=== PATIENT | female | born 1955 | race Caucasian/White ===

== ENCOUNTER → 2019-11-10 10:10 | Outpatient (BNVA) | payer MEDICARE, OTHER, SELFPAY | PROVIDERS: Family Provider Internal Medicine; PCP Internal Medicine; Referring Provider Internal Medicine; Visit Provider Podiatrist Foot & Ankle Surgery | DX: M20.41 Other hammer toe(s) (acquired), right foot (principal); M20.42 Other hammer toe(s) (acquired), left foot | CPT/HCPCS: 73630; 77077 ==

== ENCOUNTER 2019-12-02 08:20 | Outpatient (CLI) | payer MEDICARE, OTHER, SELFPAY ==
--- NOTE | 2019-12-02 08:24 | MM_ITS ---
WS: [id number] BILATERAL SCREENING DIGITAL MAMMOGRAM WITH CAD HISTORY: SCREENING COMPARISON: 12/01/2018, 11/27/2017 and 11/25/2016 Bilateral CC and MLO views submitted. Computer aided detection analyzed. Breast composition: The breasts are heterogeneously dense, which may obscure small masses. No suspici ous masses, microcalcifications or architectural distortion. Benign calcifications in each breast. Ov erall fibroglandular pattern is stable. MM/[place] [id number] IMPRESSION: BI-RADS: 2-Benign FOLLOW UP: 1 Year Follow-up
== END 2019-12-02 08:21 | disposition home or self-care (01) ==
LOC: RADSHAW 08:20
PROVIDERS: Family Provider Internal Medicine; PCP Internal Medicine; Visit Provider Internal Medicine
DX: Z12.31 Encounter for screening mammogram for malignant neoplasm of breast (principal)
CPT/HCPCS: 77067

== ENCOUNTER 2020-08-01 08:20 | Outpatient (CLI) | payer MEDICARE, OTHER, SELFPAY ==
--- NOTE | 2020-08-01 | MR_ITS ---
WS: [id number] MRI CERVICAL SPINE NONCONTRAST AND CONTRAST TECHNIQUE: Sagittal T1, T2 and STIR imaging. Axial T2, gradient, and fiesta imaging. Post gadolinium imaging was obtained CLINICAL INFORMATION: SYRINX OF SPINAL CORD COMPARISON: July 26 2019 FINDINGS: Normal cervical alignment. Stable short segment syrinx in the central cord at C5-6. This measures 2.5 mm in maximum AP dimension and 6 mm in craniocaudal length unchanged. No abnormal gadolinium enhance ment. C2-C3: Osteophytic ridging with mild facet arthropathy. Mild left foraminal narrowing. Spinal canal a nd right foramen are patent. C3-C4: Slight retrolisthesis C3 on C4 with disc osteophyte complex. Moderate left and no significant right foraminal narrowing. Spinal canal is patent. C4-C5: Slight retrolisthesis C4 on C5. Disc osteophyte complex with endplate ridging. Mild central ca nal stenosis. Moderate left and mild to moderate right bony foraminal narrowing. Mild facet arthropat hy. C5-C6: Disc osteophyte complex with endplate ridging. Moderate to severe bilateral bony foraminal renetta rowing. Mild central canal stenosis. Moderate facet arthropathy. C6-C7: Disc osteophyte complex eccentric to the left. Severe left and moderate right bony foraminal n arrowing. Spinal canal is patent. Mild facet arthropathy. C7-T1: Normal. Visualized brain stem structures: Normal. Prevertebral soft tissues: Normal. MR/MR cervical spine wo/w [id number] IMPRESSION: 1. Stable syrinx within the cervical cord measuring 2.5 mm in AP dimension and 6 mm in craniocaudal length C5-6. No enhancement. Cord signal is otherwise nor mal. No evidence of syrinx progression. 2. Mild central canal stenosis C4-C5 and C5-C6 due to disc osteophytic ridging . 3. Moderate to severe multilevel bony foraminal narrowing worse at left C4-C5, bilateral C5-C6, and left C6-C7 unchanged.
== END 2020-08-01 08:21 | disposition home or self-care (01) ==
LOC: RADSHAW 08:23
PROVIDERS: PCP Internal Medicine; Visit Provider Specialist
DX: G95.0 Syringomyelia and syringobulbia (principal)
CPT/HCPCS: 72156; 99214; A9579

== ENCOUNTER → 2020-08-10 11:42 | Outpatient (BNVA) | payer MEDICARE, OTHER, SELFPAY | PROVIDERS: Family Provider Internal Medicine; PCP Internal Medicine; Visit Provider Internal Medicine Cardiovascular Disease | DX: E78.5 Hyperlipidemia, unspecified (principal) | CPT/HCPCS: 80061 ==

== ENCOUNTER 2020-12-05 08:12 | Outpatient (CLI) | payer MEDICARE, OTHER, SELFPAY ==
--- NOTE | 2020-12-05 08:47 | MM_ITS ---
WS: [id number] BILATERAL SCREENING DIGITAL MAMMOGRAM WITH CAD HISTORY: SCREENING COMPARISON: 12/02/2019 and 12/01/2018 Bilateral CC and MLO views submitted. Computer aided detection analyzed. Breast composition: The breasts are heterogeneously dense, which may obscure small masses. No suspici ous masses, microcalcifications or architectural distortion. Stable appearance of the breasts with be nign calcifications. MM/[place] [id number] IMPRESSION: BI-RADS: 2-Benign FOLLOW UP: 1 Year Follow-up
== END 2020-12-05 08:13 | disposition home or self-care (01) ==
PROVIDERS: Family Provider Internal Medicine; PCP Internal Medicine; Visit Provider Internal Medicine
DX: Z12.31 Encounter for screening mammogram for malignant neoplasm of breast (principal)
CPT/HCPCS: 77067

== ENCOUNTER 2021-08-09 10:48 | Outpatient (CLI) | payer MEDICARE, OTHER, SELFPAY ==
--- NOTE | 2021-08-09 11:00 | MR_ITS ---
WS: [id number] MRI CERVICAL SPINE with and without contrast. HISTORY: Follow-up syrinx. COMPARISON: 08/01/2020 Technique: Multiplanar, multisequence noncontrast imaging of the cervical spine. Postcontrast study a lso performed. Mild increase in the cervical lordosis. Less than 2 mm retrolisthesis of C3 and C4. Moderate degenera tive disc disease and osteophytosis throughout the cervical spine. Very similar to the prior study. Stable short segment syrinx in the central cervical cord at the C5-6 level. Extends over a length of 6 mm and anterior posterior by 2.5 mm. No additional syrinx or progression and no enhancement. Craniocervical junction, C1 and C2 relationship, odontoid process and soft tissues are normal. C2-C3: Osteophytic ridging slightly asymmetric to the LEFT with mild LEFT foraminal narrowing. C3-C4: Central disc osteophyte complex extends slightly greater to the LEFT. Mild central and LEFT fo raminal narrowing. C4-C5: Osteophytic ridging and disc bulging with contact on the ventral thecal sac and slightly great er contact on the LEFT. Mild central and RIGHT foraminal stenosis with moderate LEFT foraminal stenos is. C5-C6: Diffuse osteophytic ridging and annular disc bulging. Mild central and moderate foraminal sten osis. C6-C7: Diffuse osteophytic ridging and central disc protrusion. Severe LEFT and moderate RIGHT forami nal stenosis due to disc and osteophyte disease. Mild central stenosis. Facet cyst or small nerve sonam t sleeve diverticulum on the LEFT. C7-T1: Normal. Paraspinal soft tissue are normal. MR/MR cervical spine wo/w [id number] IMPRESSION: 1. Stable syrinx in the central cervical cord at C5-6 extends over length of 6 mm and enter posterior by 2.5 mm. No enhancement or progression of syrinx. 2. Multilevel areas of stenosis predominantly due to osteophytes and facet art hritis. Not significantly progressed since the prior study. 3. Moderate LEFT foraminal stenosis at C4-5 with mild central and RIGHT forami nal stenosis. 4. Mild central and moderate foraminal stenosis at C5-6. 5. Severe LEFT and moderate RIGHT foraminal stenosis at C6-7.
[2021-08-09] MEDS: gadobenate dimeglumine 20 mL vial IV (12:35)
== END 2021-08-09 10:49 | disposition home or self-care (01) ==
LOC: RADSHAW 10:52
PROVIDERS: PCP Internal Medicine; Visit Provider Licensed Practical Nurse
DX: G95.0 Syringomyelia and syringobulbia (principal); M48.02 Spinal stenosis, cervical region
CPT/HCPCS: 72156; A9577

== ENCOUNTER → 2021-09-12 09:20 | Outpatient (BNVA) | payer MEDICARE, OTHER, SELFPAY | PROVIDERS: PCP Internal Medicine; Visit Provider Internal Medicine | DX: R30.9 Painful micturition, unspecified (principal); A60.09 Herpesviral infection of other urogenital tract; E78.5 Hyperlipidemia, unspecified; E78.2 Mixed hyperlipidemia; Z23 Encounter for immunization | CPT/HCPCS: 81000 ==

== ENCOUNTER 2022-01-24 11:15 | Outpatient (CLI) | payer MEDICARE, OTHER, SELFPAY ==
--- NOTE | 2022-01-24 11:21 | MM_ITS ---
WS: [id number] Exam: [place] [id number] Date/Time of Exam: 01/24/2022 11:21 AM Reason For Exam: SCREENING VIEWS: MLO and CC views both breasts. 3D digital tomosynthesis is also included in this exam. Comparison made with prior exam of 12/05/2020. Findings: There was no sign of mass, architectural distortion or suspicious calcification in either breast. He terogeneously dense MM/[place] [id number] Impression: BI-RADS: 2-Benign FOLLOW-UP: 1 Year Follow-up This mammogram was also analyzed by the Computer Aided Detection System R2 Imag e Rad Tech.
== END 2022-01-24 11:16 | disposition home or self-care (01) ==
LOC: RADSHAW 11:18
PROVIDERS: PCP Internal Medicine; Visit Provider Internal Medicine
DX: Z12.31 Encounter for screening mammogram for malignant neoplasm of breast (principal)
CPT/HCPCS: 77063; 77067

== ENCOUNTER 2022-06-26 10:57 | Outpatient (CLI) | payer MEDICARE, OTHER, SELFPAY ==
--- NOTE | 2022-06-26 11:00 | FL_ITS ---
WS: [id number] Exam: FL barium swallow modifd [id number] Date/Time of Exam: 06/26/2022 10:58 AM Reason For Exam: Fluoroscopy time: 2.8 minutes # of spot films: 1 Modified barium swallow was performed in conjunction with the speech therapy department. The patient experienced one episode of mild penetration into the laryngeal inlet when ingesting thin liquid barium solution. The patient tolerated nectar consistency, pudding consistency and solid bariu m mixture foodstuffs without aspiration or penetration. The patient ingested a barium pill without di fficulty or complication. FL/FL barium swallow modifd [id number] IMPRESSION: 1. The patient experienced one episode of mild penetration into the laryngeal i nlet when ingesting thin liquids. No other sign of penetration. No aspiration w as noted. A separate report of recommendations and findings will follow from the speech t herapy service.
== END 2022-06-26 10:58 | disposition home or self-care (01) ==
LOC: RAD 10:57
PROVIDERS: PCP Internal Medicine; Visit Provider Internal Medicine
DX: T17.308A Unspecified foreign body in larynx causing other injury, initial encounter (principal); X58.XXXA Exposure to other specified factors, initial encounter
CPT/HCPCS: 74230; 92611

== ENCOUNTER 2023-01-28 08:04 | Outpatient (CLI) | payer MEDICARE, OTHER, SELFPAY ==
--- NOTE | 2023-01-28 08:13 | MM_ITS ---
WS: [id number] BILATERAL SCREENING DIGITAL TOMOSYNTHESIS MAMMOGRAM WITH CAD HISTORY: SCREENING COMPARISON: 01/24/2022, 12/05/2020 Bilateral CC and MLO views with tomosynthesis and synthetic mammography submitted. Computer aided det ection analyzed. Breast composition: The breasts are heterogeneously dense, which may obscure small masses. No suspici ous masses, microcalcifications or architectural distortion. Benign bilateral calcifications. MM/[place] [id number] IMPRESSION: BI-RADS: 2-Benign FOLLOW UP: 1 Year Follow-up
== END 2023-01-28 08:05 | disposition home or self-care (01) ==
LOC: RAD 08:08
PROVIDERS: PCP Internal Medicine; Visit Provider Internal Medicine
DX: Z12.31 Encounter for screening mammogram for malignant neoplasm of breast (principal)
CPT/HCPCS: 77063; 77067

== ENCOUNTER 2023-10-14 10:47 | Outpatient (CLI) | payer MEDICARE, OTHER, SELFPAY ==
--- NOTE | 2023-10-14 10:55 | MR_ITS ---
WS: [id number] MRI LUMBAR SPINE NONCONTRAST HISTORY: LUMBAR BACK PAIN W/RADICULOPATHY AFFECTING LOWER EXTREMITY COMPARISON: 08/03/2007 TECHNIQUE: Sagittal and axial multisequence imaging is submitted. Reidentified is the focal syrinx in the cervical cord at C5 extending over a length of 6 mm. No ambrose e since 08/09/2021. Degenerative spondylitic changes in the cervical and thoracic spines. No high-gra de cord compression. There is significant artifact with deformity of the lumbar spine due to the extensive hardware. Poste rior fusion hardware extends from L4-S1. Disc spaces are narrowed. Disc bases at L3-4, L4-5 and L5-S1 are distorted by the metallic artifact. Conus terminates normally at L1. L1-L2: Shallow bilateral paracentral disc protrusions. No significant stenosis. L2-L3: Mild facet arthritis and ligamentum flavum hypertrophy. No high-grade stenosis. L3-L4: Significant distortion by hardware. L4-L5: Incompletely evaluated and poorly visualized. L5-S1: Not well visualized. IMPRESSION: 1. Study is significantly compromised by the artifact secondary to the posterior fusion hardware from L4-S1. 2. There is no significant stenosis at L1-2 or L2-3. The remaining disc levels cannot be adequately e valuated.
== END 2023-10-14 10:48 | disposition home or self-care (01) ==
LOC: RAD 10:48
PROVIDERS: PCP Internal Medicine; Visit Provider Internal Medicine
DX: M54.16 Radiculopathy, lumbar region (principal); M48.061 Spinal stenosis, lumbar region without neurogenic claudication
CPT/HCPCS: 72148

== ENCOUNTER 2024-02-03 08:57 | Outpatient (CLI) | payer MEDICARE, OTHER, SELFPAY ==
--- NOTE | 2024-02-03 09:00 | MM_ITS ---
WS: [id number] BILATERAL 3D TOMOSYNTHESIS DIGITAL SCREENING MAMMOGRAPHY WITH CAD CLINICAL INFORMATION: SCREENING HISTORY: Screening mammogram. No current complaints. COMPARISON: 2022 TECHNIQUE: Bilateral CC and MLO views. FINDINGS: The breasts are composed of heterogeneous fibroglandular density tissue, which can limit the detectio n of small underlying mass lesions. No suspicious mass, asymmetry, calcifications, or architectural d istortion. No evidence of malignancy. A few incidental calcifications. Vascular calcifications. IMPRESSION: MM/[place] [id number] BI-RADS: 2-Benign FOLLOW UP: 1 Year Follow-up Recommend return to annual screening mammography.
== END 2024-02-03 08:58 | disposition home or self-care (01) ==
LOC: RAD 08:59
PROVIDERS: PCP Internal Medicine; Visit Provider Internal Medicine
DX: Z12.31 Encounter for screening mammogram for malignant neoplasm of breast (principal)
CPT/HCPCS: 77063; 77067

== ENCOUNTER → 2024-12-13 09:36 | Outpatient (BNVA) | payer MEDICARE, OTHER, SELFPAY | PROVIDERS: PCP Internal Medicine | DX: R05.9 Cough, unspecified (principal) | CPT/HCPCS: 87400 ==

== ENCOUNTER 2025-02-08 08:53 | Outpatient (CLI) | payer MEDICARE, OTHER, SELFPAY ==
--- NOTE | 2025-02-08 08:59 | MM_ITS ---
WS: [id number] BILATERAL SCREENING DIGITAL TOMOSYNTHESIS MAMMOGRAM WITH CAD HISTORY: SCREENING COMPARISON: 02/03/2024, 01/28/2023, 01/24/2022 Bilateral CC and MLO views with tomosynthesis and synthetic mammography submitted. Computer aided detection analyzed. Breast composition: The breasts are heterogeneously dense, which may obscure small masses. No suspicious masses, microcalcifications or architectural distortion. Benign calcifications in each breast. MM/MM scr tomosynthesis [id number] IMPRESSION: BI-RADS: 2 - Benign FOLLOW UP: 1 Year Follow-up
== END 2025-02-08 08:54 | disposition home or self-care (01) ==
PROVIDERS: PCP Internal Medicine; Visit Provider Internal Medicine
DX: Z12.31 Encounter for screening mammogram for malignant neoplasm of breast (principal); R92.333 Mammographic heterogeneous density, bilateral breasts; R92.1 Mammographic calcification found on diagnostic imaging of breast
CPT/HCPCS: 77063; 77067

== ENCOUNTER 2025-05-11 14:34 | Emergency (ER) | payer OTHER, MEDICARE, SELFPAY ==
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
--- OUTSIDE RECORDS SUMMARY | 2025-05-11 14:42 | XMS_ITS | Encounter Summary ---
Author Organization [facility] Address [address] [place] [address] Care Team Providers Care Biofuels Production Manager Name Role Phone Arturo Magallon MD Primary Care Provider Encounter Details Date Type Department Care Team (Latest Contact Info) Description 11/25/2001 Outpatient Historical [facility] [place] [address] [facility] [address] [place] [address] [address] MD ABDOMINAL PAIN UNSPEC SITE (Primary Dx) Social History Tobacco Use Types Packs/Day Years Used Date Smoking Tobacco: Never Assessed Comments Unknown Sex and Gender Information Value Date Recorded Sex Assigned at Not on file 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
--- OUTSIDE RECORDS SUMMARY | 2025-05-11 14:42 | XMS_ITS | Encounter Summary ---
Author Organization [facility] Address [address] [place] [address] Care Team Providers Care Hematologist Oncologist Name Role Phone Arturo Magallon MD Primary Care Provider Encounter Details Date Type Department Care Team (Latest Contact Info) Description 07/15/2000 Outpatient Historical [facility] Sean Anderson MD [address] [place] [id number] Acute upper respiratory infections of unspecified site (Primary Dx); Infective otitis externa, unspecified Social History Tobacco Use Types Packs/Day Years Used Date Smoking Tobacco: Never Assessed Comments Unknown Sex and Gender Information Value Date Recorded Sex Assigned at Not on file 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
--- OUTSIDE RECORDS SUMMARY | 2025-05-11 14:42 | XMS_ITS | Encounter Summary ---
Author Organization [facility] Address [address] [place] [address] Care Team Providers Care Mail Carrier And Clerk Name Role Phone Arturo Magallon MD Primary Care Provider Encounter Details Date Type Department Care Team (Latest Contact Info) Description 04/28/2001 Outpatient Historical [facility] Sean Anderson MD [address] [place] [id number] Pain in joint, shoulder region (Primary Dx); Carpal tunnel syndrome Social History Tobacco Use Types Packs/Day Years Used Date Smoking Tobacco: Never Assessed Comments Unknown Sex and Gender Information Value Date Recorded Sex Assigned at Not on file 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
--- OUTSIDE RECORDS SUMMARY | 2025-05-11 14:42 | XMS_ITS | Clinical Summary ---
Author Organization [facility] Address [address] 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 Gender Identity Not on file Sexual Orientation Not on file Plan of Treatment Health Maintenance Due Date Last Done Comments BREAST CANCER SCREENING 1997 DTAP/TDAP/TD VACCINES (1 - Tdap) 12/29/2001 12/29/19 02 COLORECTAL SCREENING 2002 Colorectal Cancer Screening 2002 FIT-DNA Q 3 years 2002 FIT/FOBT Q 1 year 2002 Flex Sig/CT Colonography Q 5 years 2002 PNEUMOCOCCAL VACCINE 50+ YEARS (1 of 1 - PCV) 10/29/19 08 ZOSTER VACCINE (1 of 2) 2007 OSTEOPOROSIS SCREENING 2022 INFLUENZA VACCINE (#1) 2025 08/18/2001 RSV VACCINE (60+ or ) (1 - 1-dose 75+ series) 2032 Care Teams Clinical Nursing Professor Relationship Specialty Start Date End Date Arturo Magallon MD [address] [place] [address] [facility] - General 06/19/06
--- OUTSIDE RECORDS SUMMARY | 2025-05-11 14:42 | XMS_ITS | Encounter Summary ---
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
--- OUTSIDE RECORDS SUMMARY | 2025-05-11 14:42 | XMS_ITS | Continuity of Care Document ---
Author Name [facility] Organization [facility] Care Team Providers Care Statistician Mathematical Name Role Phone [facility] Unavailable Unavailable Medications Combined list of outpatient medications from Department of Defense and Veterans Affairs facilities.Medications provided include 1) outpatient medications from the last 15 months, and 2) patient-reported medications. Medication Details Route Status Patient Instructions Prescription Expires Prescription Number Last Dispense Date Ordering Provider Order Date Order Qty Source IBANDRONATE SODIUM (ibandronat e sodium), 150 MG, TABLET, ORAL, Warp 9., 3 ea. BLIST PACK Active [id number] 2023 3 Pharmac y Data Transac tion Service Facilit y Immunizations Combined list of available immunizations from the Department of Defense and Veterans Affairs facilities. Immunization Series Date Given Administered By Site Reaction Lot Number CVX Code Drug Director Account Management Status Comments Source zoster recombinant 2020 CHAR, () Not Given zoster recombina nt DoD Social History Combined list of available smoking, tobacco, and other social history from Department of Defense and Veterans Affairs facilities. Social History Type Response Date Comment Sour e This section is an empty social history section. [facility]
--- OUTSIDE RECORDS SUMMARY | 2025-05-11 14:42 | XMS_ITS | Encounter Summary ---
Author Organization [facility] Address [address] [place] [address] Care Team Providers Care Electrical Equipment Technician Name Role Phone Arturo Magallon MD Primary Care Provider Encounter Details Date Type Department Care Team (Latest Contact Info) Description 08/18/2001 Outpatient Historical [facility] Sean Anderson MD [address] [place] [address] Need vaccination-viral disease (Primary Dx) Social History Tobacco Use Types Packs/Day Years Used Date Smoking Tobacco: Never Assessed Comments Unknown Sex and Gender Information Value Date Recorded Sex Assigned at Not on file 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
--- OUTSIDE RECORDS SUMMARY | 2025-05-11 14:42 | XMS_ITS | Encounter Summary ---
Author Organization [facility] Address [address] [place] [address] Care Team Providers Care Time Study Analyst Name Role Phone Arturo Magallon MD Primary Care Provider Encounter Details Date Type Department Care Team (Latest Contact Info) Description 09/08/[address] [facility] 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
--- OUTSIDE RECORDS SUMMARY | 2025-05-11 14:42 | XMS_ITS | Encounter Summary ---
Author Organization [facility] Address [address] [facility] [address] Attn: [place] [address] Care Team Providers Care Inhalation Therapist Name Role Phone Arturo Magallon MD Primary Care Provider Encounter Details Date Type Department Care Team (Late st Contact Info) Description 03/20/2000 Outpatient Historical Joss Rosario MD NO ADDRESS ON FILE Social History Tobacco Use Types Packs/Day Years Used Date Smoking Tobacco: Never Assessed Comments Unknown Sex and Gender Information Value Date Recorded Sex Assigned at Not on file 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
--- OUTSIDE RECORDS SUMMARY | 2025-05-11 14:42 | XMS_ITS | Encounter Summary ---
Author Organization [facility] Address [address] [place] [address] Care Team Providers Care Yarn Sorter Name Role Phone Arturo Magallon MD Primary Care Provider Encounter Details Date Type Department Care Team (Late st Contact Info) Description 08/20/2006 Outpatient Historical [facility] [address] [place] [phone] Arturo Magallon MD [address] [place] [address] Social History Tobacco Use Types Packs/Day Years Used Date Smoking Tobacco: Never Assessed Comments Unknown Sex and Gender Information Value Date Recorded Sex Assigned at Not on file 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
--- OUTSIDE RECORDS SUMMARY | 2025-05-11 14:42 | XMS_ITS | Encounter Summary ---
Author Organization [facility] Address [address] [place] [address] Care Team Providers Care Hospital Mortician Name Role Phone Arturo Magallon MD Primary Care Provider Encounter Details Date Type Department Care Team (Latest Contact Info) Description 10/16/2001 Outpatient Historical HIS [facility] Sean Anderson MD [address] [place] [phone] LUMBOSACRAL NEURITIS NOS (Primary Dx); LUMBAGO; HYPERLIPIDEMIA NEC/NOS Social History Tobacco Use Types Packs/Day Years Used Date Smoking Tobacco: Never Assessed Comments Unknown Sex and Gender Information Value Date Recorded Sex Assigned at Not on file Legal Sex Female 5:22 AM MATERIAL CONTROL SUPERVISOR Gender Identity Not on file Sexual Orientation Not on file documented as of this encounter Plan of Treatment Not on file documented as of this encounter Visit Diagnoses Diagnosis Thoracic or lumbosacral neuritis or radiculitis, unspecified- Primary Lumbago Other and unspecified hyperlipidemia documented in this encounter Care Teams Hospital Mortician Relationship Specialty Start Date End Date Arturo Magallon MD [address] [place] [address] PCP - General 06/19/06 documented as of this encounter
--- OUTSIDE RECORDS SUMMARY | 2025-05-11 14:42 | XMS_ITS | Encounter Summary ---
Author Organization [facility] Address [address] [place] [address] Care Team Providers Care Rolled Materials Worker Name Role Phone Arturo Magallon MD Primary Care Provider Encounter Details Date Type Department Care Team (Latest Contact Info) Description 06/25/2001 Outpatient Historical [facility] Joss Rosario MD NO ADDRESS ON FILE Backache, unspecified (Primary Dx); Mechanical complication of internal orthopedic device, implant, and graft Social History Tobacco Use Types Packs/Day Years Used Date Smoking Tobacco: Never Assessed Comments Unknown Sex and Gender Information Value Date Recorded Sex Assigned at Not on file Legal Sex Female 5:22 AM MANAGER IN TRAINING Gender Identity Not on file Sexual Orientation Not on file documented as of this encounter Plan of Treatment Not on file documented as of this encounter Visit Diagnoses Diagnosis Backache, unspecified- Primary Mechanical complication of internal orthopedic device, implant, and graft documented in this encounter Care Teams Rolled Materials Worker Relationship Specialty Start Date End Date Arturo Magallon MD [address] [place] [address] PCP - General 06/19/06 documented as of this encounter
--- OUTSIDE RECORDS SUMMARY | 2025-05-11 14:42 | XMS_ITS | Encounter Summary ---
Author Organization [facility] Address [address] [place] [address] Care Team Providers Care Roundsman Name Role Phone Arturo Magallon MD Primary Care Provider Encounter Details Date Type Department Care Team (Latest Contact Info) Description 11/20/2001 Outpatient Historical HIS [facility] Sean Anderson MD [address] [place] [phone] DISC DISPLACEMENT NOS (Primary Dx); General symptoms NEC; ARTHROPATHY NOS-MULT Social History Tobacco Use Types Packs/Day Years Used Date Smoking Tobacco: Never Assessed Comments Unknown Sex and Gender Information Value Date Recorded Sex Assigned at Not on file Legal Sex Female 5:22 AM ADVERTISING WRITER Gender Identity Not on file Sexual Orientation Not on file documented as of this encounter Plan of Treatment Not on file documented as of this encounter Visit Diagnoses Diagnosis Displacement of intervertebral disc, site unspecified, without myelopathy- Primary General symptoms NEC Other general symptoms Unspecified arthropathy, multiple sites documented in this encounter Care Teams Roundsman Relationship Specialty Start Date End Date Arturo Magallon MD [address] [place] [address] PCP - General 06/19/06 documented as of this encounter
--- OUTSIDE RECORDS SUMMARY | 2025-05-11 14:42 | XMS_ITS | Encounter Summary ---
Author Organization [facility] Address [address] [place] [address] Care Team Providers Care Drying Machine Back Tender Name Role Phone Arturo Magallon MD Primary Care Provider Encounter Details Date Type Department Care Team (Latest Contact Info) Description 02/19/2001 Outpatient Historical HIS [facility] Sean Anderson MD [address] [place] [phone] Lumbago (Primary Dx); Nonallopathic lesion of abdomen and other sites, not elsewhere classified Social History Tobacco Use Types Packs/Day Years Used Date Smoking Tobacco: Never Assessed Comments Unknown Sex and Gender Information Value Date Recorded Sex Assigned at Not on file Legal Sex Female 5:22 AM CUSTOMER CARE SPECIALIST Gender Identity Not on file Sexual Orientation Not on file documented as of this encounter Plan of Treatment Not on file documented as of this encounter Visit Diagnoses Diagnosis Lumbago- Primary Nonallopathic lesion of abdomen and other sites, not elsewhere classified documented in this encounter Care Teams Drying Machine Back Tender Relationship Specialty Start Date End Date Arturo Magallon MD [address] [place] [address] PCP - General 06/19/06 documented as of this encounter
--- OUTSIDE RECORDS SUMMARY | 2025-05-11 14:42 | XMS_ITS | Encounter Summary ---
Author Organization [facility] Address [address] [place] [address] Care Team Providers Care Patient Transport Officer Name Role Phone Arturo Magallon MD Primary Care Provider Encounter Details Date Type Department Care Team (Late st Contact Info) Description 07/20/2006 Outpatient Historical [facility] Therapy [address] [place] [address] Arturo Magallon MD [address] [place] [address] Social History Tobacco Use Types Packs/Day Years Used Date Smoking Tobacco: Never Assessed Comments Unknown Sex and Gender Information Value Date Recorded Sex Assigned at Not on file Legal Sex Female 5:22 AM RUG SAMPLE BEVELER Gender Identity Not on file Sexual Orientation Not on file documented as of this encounter Plan of Treatment Not on file documented as of this encounter Visit Diagnoses Not on filedocumented in this encounter Care Teams Patient Transport Officer Relationship Specialty Start Date End Date Arturo Magallon MD [address] [place] [address] PCP - General 06/19/06 documented as of this encounter
--- OUTSIDE RECORDS SUMMARY | 2025-05-11 14:42 | XMS_ITS | Patient Health Record ---
Author Organization [facility] Address [address] [place] [address] Care Team Providers Care Healthcare Liaison Name Role Phone Maynor Rossi Primary Care Provider Allergies Allergen (clinical drug ingredient) Drug/Non Drug Allergy documented on EMR Reaction Allergy Type Onset Date Status propoxyphene Propoxyphene vomiting Drug Allergy A ctive Reason For Referral No Information Medications Medication SIG (Take, Route, Frequency, Duration) Notes Start Date End Date Status Aspirin 81 MG Tablet Delayed Release 1 tablet Orally Once a day Active Ibandronate Sodium 150 mg Tablet TAKE 1 TABLET 60 MINUTES BEFORE FIRST FOOD, BEVERAGE OR MEDICINE OF THE DAY WITH PLAIN WATER ONCE A MONTH Active Topiramate 50 MG Tablet 1 tablet Orally Twice a day; Duration: 90 days Active Diclofenac Sodium 1 % Gel 4 grams Lens Molder ally Four times a day Not-Taking Diclofenac Sodium 3 % Gel 1 application Externally Twice a day; Duration: 90 days Active Celecoxib 400 mg Capsule TAKE 1 CAPSULE DAILY WITH FOOD Active oxyCODONE HCl 5 MG Tablet 1 tablet as ne eded Orally every 6 hrs; Duration: 30 days 11/06/2023 Active valACYclovir HCl 1 GM Tablet TAKE 1 TABLET DAILY Active Simvastatin 40 mg Tablet TAKE 1 TABLET D AILY IN THE EVENING Active Pantoprazole Sodium 40 MG Tablet Delayed Release 1 tablet Orally twice a day; Duration: 90 days Active Social History Tobacco Use: Social History Observation Description Date Details (start date - stop date) Former Smoker NA - NA Social History Drugs/Alcohol: Social Info Question Answer Notes Alcohol Screen (Audit-C) Did you have a drink containing alcohol in the past year? No Points 0 Interpretation Negative Drugs Have you used drugs other than those for medical reasons in the past 12 months? No Tobacco Use: Social Info Question Answer Notes xTobacco Use/Smoking Are you a former smoker How long has it been since you last smoked? > 10 years Problems Problem Type SNOMED Code ICD Code Onset Dates Problem Status W/U Status Risk Notes Problem Lumbar radiculopathy (328594228) Lumbar back pain with radiculopathy affecting lower extremity (M54.16) Active confirmed Plan Of Treatment No Information Insurance Providers Payer Name Payer Address Payer Phone Subscriber Number Group Number Insured Name Patient Relationship to Insured Coverage Start Date Coverage End Date [place] [address] [place] [phone] [id number] Vi Hook Self - patient is the insured for Life Secondary to Medicare [address] [place] [address] [phone] [id number] Vi Hook Self - patient is the insured Medical (General) History Medical History History ICD Code back pain hypertension arthritis Surgical History Surgery Date(Month/Year) hysterectomy lumbarectomy back fusion right hand surgery
--- OUTSIDE RECORDS SUMMARY | 2025-05-11 14:42 | XMS_ITS | Encounter Summary ---
Author Organization [employer] [facility] Address [address] [place] [address] Care Team Providers Care Medical Accountant Name Role Phone Arturo Magallon MD Primary Care Provider Encounter Details Date Type Department Care Team (Latest Contact Info) Description 02/05/2001 Outpatient Historical [facility] Sean Anderson MD [address] [facility] [place] [phone] Other specified disease of white blood cells (Primary Dx); Migraine, unspecified, without mention of intractable migraine without mention of status migrainosus; Polycythemia vera(238.4) (CMS/HCC) Social History Tobacco Use Types Packs/Day Years Used Date Smoking Tobacco: Never Assessed Comments Unknown Sex and Gender Information Value Date Recorded Sex Assigned at Not on file Legal Sex Female 5:22 AM BAND DIRECTOR Gender Identity Not on file Sexual Orientation Not on file documented as of this encounter Plan of Treatment Not on file documented as of this encounter Visit Diagnoses Diagnosis Other specified disease of white blood cells- Primary Migraine, unspecified, without mention of intractable migraine without mention of status migrainosus Polycythemia vera(238.4) (CMS/HCC) Polycythemia vera documented in this encounter Care Teams Medical Accountant Relationship Specialty Start Date End Date Arturo Magallon MD [address] [place] [address] PCP - General 06/19/06 documented as of this encounter
--- OUTSIDE RECORDS SUMMARY | 2025-05-11 14:42 | XMS_ITS | Encounter Summary ---
Author Organization [facility] Address [address] [place] [address] Care Team Providers Care Private Inquiry Agent Name Role Phone Arturo Magallon MD Primary Care Provider Encounter Details Date Type Department Care Team (Latest Contact Info) Description 08/17/2001 Outpatient Historical HIS [facility] Sean Anderson MD [address] [place] [phone] Lumbago (Primary Dx); Mechanical complication of internal orthopedic device, implant, and graft Social History Tobacco Use Types Packs/Day Years Used Date Smoking Tobacco: Never Assessed Comments Unknown Sex and Gender Information Value Date Recorded Sex Assigned at Not on file Legal Sex Female 5:22 AM FLAP PRESSER Gender Identity Not on file Sexual Orientation Not on file documented as of this encounter Plan of Treatment Not on file documented as of this encounter Visit Diagnoses Diagnosis Lumbago- Primary Mechanical complication of internal orthopedic device, implant, and graft documented in this encounter Care Teams Private Inquiry Agent Relationship Specialty Start Date End Date Arturo Magallon MD [address] [place] [address] PCP - General 06/19/06 documented as of this encounter
--- OUTSIDE RECORDS SUMMARY | 2025-05-11 14:42 | XMS_ITS | Encounter Summary ---
Author Organization [facility] Address [address] [place] [address] Care Team Providers Care Business Continuity Coordinator Name Role Phone Arturo Magallon MD Primary Care Provider Encounter Details Date Type Department Care Team (Latest Contact Info) Description 09/21/2001 Outpatient Historical HIS [facility] Sean Anderson MD [address] [place] [phone] LUMBOSACRAL NEURITIS NOS (Primary Dx); LUMBAGO; General symptoms NEC Social History Tobacco Use Types Packs/Day Years Used Date Smoking Tobacco: Never Assessed Comments Unknown Sex and Gender Information Value Date Recorded Sex Assigned at Not on file Legal Sex Female 5:22 AM TONG SETTER Gender Identity Not on file Sexual Orientation Not on file documented as of this encounter Plan of Treatment Not on file documented as of this encounter Visit Diagnoses Diagnosis Thoracic or lumbosacral neuritis or radiculitis, unspecified- Primary Lumbago General symptoms NEC Other general symptoms documented in this encounter Care Teams Business Continuity Coordinator Relationship Specialty Start Date End Date Arturo Magallon MD [address] [place] [address] PCP - General 06/19/06 documented as of this encounter
--- OUTSIDE RECORDS SUMMARY | 2025-05-11 14:42 | XMS_ITS | Encounter Summary ---
Author Organization [employer] [facility] Address [address] [place] [address] Care Team Providers Care Biblical Studies Professor Name Role Phone Arturo Magallon MD Primary Care Provider Encounter Details Date Type Department Care Team (Latest Contact Info) Description 03/30/2001 Outpatient Historical HIS [facility] Sean Anderson MD [address] [place] [phone] Polycythemia vera(238.4) (CMS/HCC) (Primary Dx); Nonallopathic lesion of abdomen and other sites, not elsewhere classified; General symptoms NEC; Disorders of bursae and tendons in shoulder region, unspecified Social History Tobacco Use Types Packs/Day Years Used Date Smoking Tobacco: Never Assessed Comments Unknown Sex and Gender Information Value Date Recorded Sex Assigned at Not on file Legal Sex Female 5:22 AM ANNUAL GIVING MANAGER Gender Identity Not on file Sexual Orientation Not on file documented as of this encounter Plan of Treatment Not on file documented as of this encounter Visit Diagnoses Diagnosis Polycythemia vera(238.4) (CMS/HCC)- Primary Polycythemia vera Nonallopathic lesion of abdomen and other sites, not elsewhere classified General symptoms NEC Other general symptoms Disorders of bursae and tendons in shoulder region, unspecified documented in this encounter Care Teams Biblical Studies Professor Relationship Specialty Start Date End Date Arturo Magallon MD [address] [place] [place] [address] PCP - General 06/19/06 documented as of this encounter
--- OUTSIDE RECORDS SUMMARY | 2025-05-11 14:43 | XMS_ITS | Encounter Summary ---
Author Organization [facility] Address [address] [place] [address] Care Team Providers Care Video Arcade Manager Name Role Phone Arturo Magallon MD Primary Care Provider Encounter Details Date Type Department Care Team (Latest Contact Info) Description 08/23/2002 Outpatient Historical HIS [facility] Sean Anderson MD [address] [place] [phone] ABDOMINAL PAIN UNSPEC SITE (Primary Dx); PERS HX COLONIC POLYPS Social History Tobacco Use Types Packs/Day Years Used Date Smoking Tobacco: Never Assessed Comments Unknown Sex and Gender Information Value Date Recorded Sex Assigned at Not on file Legal Sex Female 5:22 AM JAVA PROGRAMMER ANALYST Gender Identity Not on file Sexual Orientation Not on file documented as of this encounter Plan of Treatment Not on file documented as of this encounter Visit Diagnoses Diagnosis Abdominal pain, unspecified site- Primary Personal history of colonic polyps documented in this encounter Care Teams Video Arcade Manager Relationship Specialty Start Date End Date Arturo Magallon MD [address] [place] [address] PCP - General 06/19/06 documented as of this encounter
--- OUTSIDE RECORDS SUMMARY | 2025-05-11 14:43 | XMS_ITS | Encounter Summary ---
Author Organization [facility] Address [address] [place] [address] Care Team Providers Care Air Brake Worker Name Role Phone Arturo Magallon MD Primary Care Provider Encounter Details Date Type Department Care Team (Latest Contact Info) Description 01/08/2001 Outpatient Historical HIS [facility] Sean Anderson MD [address] [place] [phone] Nonallopathic lesion of abdomen and other sites, not elsewhere classified (Primary Dx); Allergic rhinitis, cause unspecified; Chest pain, unspecified Social History Tobacco Use Types Packs/Day Years Used Date Smoking Tobacco: Never Assessed Comments Unknown Sex and Gender Information Value Date Recorded Sex Assigned at Not on file Legal Sex Female 5:22 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
--- OUTSIDE RECORDS SUMMARY | 2025-05-11 14:43 | XMS_ITS | Encounter Summary ---
Author Organization [facility] Address [address] [place] [address] Care Team Providers Care Health Companion Name Role Phone Arturo Magallon MD Primary Care Provider Encounter Details Date Type Department Care Team (Latest Contact Info) Description 11/08/2002 Outpatient Historical HIS [facility] Sean Anderson MD [address] [place] [phone] DISC DISPLACEMENT NOS (Primary Dx); LUMBAGO Social History Tobacco Use Types Packs/Day Years Used Date Smoking Tobacco: Never Assessed Comments Unknown Sex and Gender Information Value Date Recorded Sex Assigned at Not on file Legal Sex Female 5:22 AM SURVIVAL SPECIALIST Gender Identity Not on file Sexual Orientation Not on file documented as of this encounter Plan of Treatment Not on file documented as of this encounter Visit Diagnoses Diagnosis Displacement of intervertebral disc, site unspecified, without myelopathy- Primary Lumbago documented in this encounter Care Teams Health Companion Relationship Specialty Start Date End Date Arturo Magallon MD [address] [place] [address] PCP - General 06/19/06 documented as of this encounter
--- OUTSIDE RECORDS SUMMARY | 2025-05-11 14:43 | XMS_ITS | Encounter Summary ---
Author Organization [facility] Address [address] [place] [address] Care Team Providers Care Data Processing Control Clerk Name Role Phone Arturo Magallon MD Primary Care Provider Encounter Details Date Type Department Care Team (Latest Contact Info) Description 04/30/2002 Outpatient Historical [facility] Sean Anderson MD [address] [place] [phone] HEAD INJURY UNSPECIFIED (Primary Dx) Social History Tobacco Use Types Packs/Day Years Used Date Smoking Tobacco: Never Assessed Comments Unknown Sex and Gender Information Value Date Recorded Sex Assigned at Not on file Legal Sex Female 5:22 AM EQUIPMENT SERVICE ENGINEER Gender Identity Not on file Sexual Orientation Not on file documented as of this encounter Plan of Treatment Not on file documented as of this encounter Visit Diagnoses Diagnosis Head injury, unspecified- Primary documented in this encounter Care Teams Data Processing Control Clerk Relationship Specialty Start Date End Date Arturo Magallon MD [address] [place] [address] PCP - General 06/19/06 documented as of this encounter
--- OUTSIDE RECORDS SUMMARY | 2025-05-11 14:43 | XMS_ITS | Encounter Summary ---
Author Organization [employer] [facility] Address [address] [place] [address] Care Team Providers Care Survey Director Name Role Phone Arturo Magallon MD Primary Care Provider Encounter Details Date Type Department Care Team (Latest Contact Info) Description 12/28/2001 Outpatient Historical HIS [facility] Sean Anderson MD [address] [place] [phone] Diffus cystic mastopathy (Primary Dx); MASTODYNIA; ABRASION FOREARM; VACCINE FOR TETANUS + DIPHTHERIA Social History Tobacco Use Types Packs/Day Years Used Date Smoking Tobacco: Never Assessed Comments Unknown Sex and Gender Information Value Date Recorded Sex Assigned at Not on file Legal Sex Female 5:22 AM WASTE COLLECTOR Gender Identity Not on file Sexual Orientation Not on file documented as of this encounter Plan of Treatment Not on file documented as of this encounter Visit Diagnoses Diagnosis Diffus cystic mastopathy- Primary Diffuse cystic mastopathy Mastodynia Elbow, forearm, and wrist, abrasion or friction burn, without mention of infection Need for prophylactic vaccination with tetanus-diphtheria (Td) documented in this encounter Care Teams Survey Director Relationship Specialty Start Date End Date Arturo Magallon MD [address] [place] [address] PCP - General 06/19/06 documented as of this encounter
--- OUTSIDE RECORDS SUMMARY | 2025-05-11 14:43 | XMS_ITS | Encounter Summary ---
Author Organization [facility] Address [address] [place] [address] Care Team Providers Care Security Installation Technician Name Role Phone Arturo Magallon MD Primary Care Provider Encounter Details Date Type Department Care Team (Latest Contact Info) Description 04/01/2002 Outpatient Historical HIS [facility] Sean Anderson MD [address] [place] [phone] DISC DISPLACEMENT NOS (Primary Dx); General symptoms NEC Social History Tobacco Use Types Packs/Day Years Used Date Smoking Tobacco: Never Assessed Comments Unknown Sex and Gender Information Value Date Recorded Sex Assigned at Not on file Legal Sex Female 5:22 AM HEEL ATTACHER Gender Identity Not on file Sexual Orientation Not on file documented as of this encounter Plan of Treatment Not on file documented as of this encounter Visit Diagnoses Diagnosis Displacement of intervertebral disc, site unspecified, without myelopathy- Primary General symptoms NEC Other general symptoms documented in this encounter Care Teams Security Installation Technician Relationship Specialty Start Date End Date Arturo Magallon MD [address] [place] [phone] PCP - General 06/19/06 documented as of this encounter
--- OUTSIDE RECORDS SUMMARY | 2025-05-11 14:43 | XMS_ITS | Encounter Summary ---
Author Organization [facility] Address [address] [place] [address] Care Team Providers Care Salesperson Pets And Pet Supplies Name Role Phone Arturo Magallon MD Primary Care Provider Encounter Details Date Type Department Care Team (Latest Contact Info) Description 05/13/2006 Outpatient Historical [facility] [address] [phone] Arturo Magallon MD [address] [place] [address] Carpal Tunnel Syndrome (Primary Dx) Social History Tobacco Use Types Packs/Day Years Used Date Smoking Tobacco: Never Assessed Comments Unknown Sex and Gender Information Value Date Recorded Sex Assigned at Not on file Legal Sex Female 5:22 AM DEPUTY DISTRICT CUSTOMS DIRECTOR Gender Identity Not on file Sexual Orientation Not on file documented as of this encounter Plan of Treatment Not on file documented as of this encounter Visit Diagnoses Diagnosis Carpal tunnel syndrome- Primary documented in this encounter Care Teams Salesperson Pets And Pet Supplies Relationship Specialty Start Date End Date Arturo Magallon MD [address] [place] [address] PCP - General 06/19/06 documented as of this encounter
--- OUTSIDE RECORDS SUMMARY | 2025-05-11 14:43 | XMS_ITS | Encounter Summary ---
Author Organization [facility] Address [address] [place] [address] Care Team Providers Care Senior Front End Developer Name Role Phone Arturo Magallon MD Primary Care Provider Encounter Details Date Type Department Care Team (Late st Contact Info) Description 05/19/2006 Outpatient Historical HIS [facility] Social History Tobacco Use Types Packs/Day Years Used Date Smoking Tobacco: Never Assessed Comments Unknown Sex and Gender Information Value Date Recorded Sex Assigned at Not on file Legal Sex Female 5:22 AM CLIENT BUSINESS MANAGER Gender Identity Not on file Sexual Orientation Not on file documented as of this encounter Plan of Treatment Not on file documented as of this encounter Visit Diagnoses Not on filedocumented in this encounter Care Teams Senior Front End Developer Relationship Specialty Start Date End Date Arturo Magallon MD [address] [place] [address] PCP - General 06/19/06 documented as of this encounter
--- OUTSIDE RECORDS SUMMARY | 2025-05-11 14:43 | XMS_ITS | Encounter Summary ---
Author Organization [facility] Address [address] [place] [address] Care Team Providers Care Abalone Sheller Name Role Phone Arturo Magallon MD Primary Care Provider Encounter Details Date Type Department Care Team (Latest Contact Info) Description 05/19/2006 Outpatient Historical [facility] Hand Therapy [address] [place] [phone] Arturo Magallon MD [address] [place] [address] Primary Localized Osteoarthrosis, Forearm (Primary Dx) Social History Tobacco Use Types Packs/Day Years Used Date Smoking Tobacco: Never Assessed Comments Unknown Sex and Gender Information Value Date Recorded Sex Assigned at Not on file Legal Sex Female 5:22 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
--- OUTSIDE RECORDS SUMMARY | 2025-05-11 14:43 | XMS_ITS | Encounter Summary ---
Author Organization [facility] Address [address] [place] [address] Care Team Providers Care Cost Clerk Name Role Phone Arturo Magallon MD Primary Care Provider Encounter Details Date Type Department Care Team (Latest Contact Info) Description 01/25/2002 Outpatient Historical HIS [facility] Sean Anderson MD [address] [place] [phone] DISC DISPLACEMENT NOS (Primary Dx); General symptoms NEC Social History Tobacco Use Types Packs/Day Years Used Date Smoking Tobacco: Never Assessed Comments Unknown Sex and Gender Information Value Date Recorded Sex Assigned at Not on file Legal Sex Female 5:22 AM ARCHITECT NAVAL Gender Identity Not on file Sexual Orientation Not on file documented as of this encounter Plan of Treatment Not on file documented as of this encounter Visit Diagnoses Diagnosis Displacement of intervertebral disc, site unspecified, without myelopathy- Primary General symptoms NEC Other general symptoms documented in this encounter Care Teams Cost Clerk Relationship Specialty Start Date End Date Arturo Magallon MD [address] [place] [address] PCP - General 06/19/06 documented as of this encounter
--- OUTSIDE RECORDS SUMMARY | 2025-05-11 14:43 | XMS_ITS | Encounter Summary ---
Author Organization [facility] Address [address] [place] [address] Care Team Providers Care Agile Business Analyst Name Role Phone Arturo Magallon MD Primary Care Provider Encounter Details Date Type Department Care Team (Latest Contact Info) Description 08/23/2002 Outpatient Historical HIS [facility] Sean Anderson MD [address] [place] [phone] DISC DISPLACEMENT NOS (Primary Dx); General symptoms NEC; LUMBAGO Social History Tobacco Use Types Packs/Day Years Used Date Smoking Tobacco: Never Assessed Comments Unknown Sex and Gender Information Value Date Recorded Sex Assigned at Not on file Legal Sex Female 5:22 AM EDITORIAL ASSISTANT Gender Identity Not on file Sexual Orientation Not on file documented as of this encounter Plan of Treatment Not on file documented as of this encounter Visit Diagnoses Diagnosis Displacement of intervertebral disc, site unspecified, without myelopathy- Primary General symptoms NEC Other general symptoms Lumbago documented in this encounter Care Teams Agile Business Analyst Relationship Specialty Start Date End Date Arturo Magallon MD [address] [place] [address] PCP - General 06/19/06 documented as of this encounter
--- OUTSIDE RECORDS SUMMARY | 2025-05-11 14:43 | XMS_ITS | Encounter Summary ---
Author Organization [facility] Address [address] [place] [address] Care Team Providers Care Sponsorship Coordinator Name Role Phone Arturo Magallon MD Primary Care Provider Encounter Details Date Type Department Care Team (Late st Contact Info) Description 08/18/2002 Outpatient Historical HIS [facility] EuniceGulshan MD [address] [facility] [address] [place] [phone] SURGERY FOLLOWUP, UNSPEC (Primary Dx) Social History Tobacco Use Types Packs/Day Years Used Date Smoking Tobacco: Never Assessed Comments Unknown Sex and Gender Information Value Date Recorded Sex Assigned at Not on file Legal Sex Female 5:22 AM COMPLIANCE TESTER Gender Identity Not on file Sexual Orientation Not on file documented as of this encounter Plan of Treatment Not on file documented as of this encounter Visit Diagnoses Diagnosis Follow-up examination, following unspecified surgery- Primary documented in this encounter Care Teams Sponsorship Coordinator Relationship Specialty Start Date End Date Arturo Magallon MD [address] [place] [address] PCP - General 06/19/06 documented as of this encounter
--- OUTSIDE RECORDS SUMMARY | 2025-05-11 14:43 | XMS_ITS | Encounter Summary ---
Author Organization [facility] Address [address] [place] [address] Care Team Providers Care Patroller Name Role Phone Arturo Magallon MD Primary Care Provider Encounter Details Date Type Department Care Team (Late st Contact Info) Description 12/30/2001 Outpatient Historical HIS [facility] EuniceGulshan MD [address] [facility] [address] [place] [phone] LUMP OR MASS IN BREAST (Primary Dx) Social History Tobacco Use Types Packs/Day Years Used Date Smoking Tobacco: Never Assessed Comments Unknown Sex and Gender Information Value Date Recorded Sex Assigned at Not on file Legal Sex Female 5:22 AM 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 [address] PCP - General 06/19/06 documented as of this encounter
--- OUTSIDE RECORDS SUMMARY | 2025-05-11 14:43 | XMS_ITS | Encounter Summary ---
Author Organization [facility] Address [address] [place] [address] Care Team Providers Care Marketing Programs Specialist Name Role Phone Arturo Magallon MD Primary Care Provider Encounter Details Date Type Department Care Team (Latest Contact Info) Description 06/18/2002 Outpatient Historical HIS [facility] Sean Anderson MD [address] [place] [phone] RENAL & URETERAL DIS NOS (Primary Dx); General symptoms NEC; DISC DISPLACEMENT NOS Social History Tobacco Use Types Packs/Day Years Used Date Smoking Tobacco: Never Assessed Comments Unknown Sex and Gender Information Value Date Recorded Sex Assigned at Not on file Legal Sex Female 5:22 AM ENGINEERING COORDINATOR Gender Identity Not on file Sexual Orientation Not on file documented as of this encounter Plan of Treatment Not on file documented as of this encounter Visit Diagnoses Diagnosis Unspecified disorder of kidney and ureter- Primary General symptoms NEC Other general symptoms Displacement of intervertebral disc, site unspecified, without myelopathy documented in this encounter Care Teams Marketing Programs Specialist Relationship Specialty Start Date End Date Arturo Magallon MD [address] [place] [address] PCP - General 06/19/06 documented as of this encounter
--- OUTSIDE RECORDS SUMMARY | 2025-05-11 14:43 | XMS_ITS | Encounter Summary ---
Author Organization [facility] Address [address] [place] [address] Care Team Providers Care Grape Cutter Name Role Phone Arturo Magallon MD Primary Care Provider Encounter Details Date Type Department Care Team (Latest Contact Info) Description 04/21/2006 Outpatient Historical [facility] Orthopedics- [address] [place] [phone] Arturo Magallon MD [address] [place] [address] Primary Localized Osteoarthrosis, Hand (Primary Dx); Carpal Tunnel Syndrome Social History Tobacco Use Types Packs/Day Years Used Date Smoking Tobacco: Never Assessed Comments Unknown Sex and Gender Information Value Date Recorded Sex Assigned at Not on file Legal Sex Female 5:22 AM GLUE SPRAYER Gender Identity Not on file Sexual Orientation Not on file documented as of this encounter Plan of Treatment Not on file documented as of this encounter Visit Diagnoses Diagnosis Primary localized osteoarthrosis, hand- Primary Carpal tunnel syndrome documented in this encounter Care Teams Grape Cutter Relationship Specialty Start Date End Date Arturo Magallon MD [address] [place] [address] PCP - General 06/19/06 documented as of this encounter
--- OUTSIDE RECORDS SUMMARY | 2025-05-11 14:43 | XMS_ITS | Encounter Summary ---
Author Organization [facility] Address [address] [place] [address] Care Team Providers Care Mechanical Detailer Name Role Phone Arturo Magallon MD Primary Care Provider Encounter Details Date Type Department Care Team (Latest Contact Info) Description 07/29/2000 Outpatient Historical HIS [facility] Sean Anderson MD [address] [place] [phone] Injury, other and unspecified, trunk (Primary Dx); Other unspecified back disorder; Other accident; Accident in Public Bldg Social History Tobacco Use Types Packs/Day Years Used Date Smoking Tobacco: Never Assessed Comments Unknown Sex and Gender Information Value Date Recorded Sex Assigned at Not on file Legal Sex Female 5:22 AM PEDIATRIC CRITICAL CARE NURSE Gender Identity Not on file Sexual Orientation Not on file documented as of this encounter Plan of Treatment Not on file documented as of this encounter Visit Diagnoses Diagnosis Injury, other and unspecified, trunk- Primary Other unspecified back disorder Other accident Accident in Public Bldg Injury, other and unspecified, unspecified site documented in this encounter Care Teams Mechanical Detailer Relationship Specialty Start Date End Date Arturo Magallon MD [address] [place] [address] PCP - General 06/19/06 documented as of this encounter
--- OUTSIDE RECORDS SUMMARY | 2025-05-11 14:43 | XMS_ITS | Encounter Summary ---
Author Organization [facility] Address [address] [place] [address] Care Team Providers Care Atg Architect Name Role Phone Arturo Magallon MD Primary Care Provider Encounter Details Date Type Department Care Team (Latest Contact Info) Description 05/19/2006 Outpatient Historical [facility] Orthopedics- [address] [place] [phone] Arturo Magallon MD [address] [place] [address] Carpal Tunnel Syndrome (Primary Dx); Primary Localized Osteoarthrosis, Forearm Social History Tobacco Use Types Packs/Day Years Used Date Smoking Tobacco: Never Assessed Comments Unknown Sex and Gender Information Value Date Recorded Sex Assigned at Not on file Legal Sex Female 5:22 AM MEDICAL IMAGING TECH Gender Identity Not on file Sexual Orientation Not on file documented as of this encounter Plan of Treatment Not on file documented as of this encounter Visit Diagnoses Diagnosis Carpal tunnel syndrome- Primary Primary localized osteoarthrosis, forearm documented in this encounter Care Teams Atg Architect Relationship Specialty Start Date End Date Arturo Magallon MD [address] [place] [address] PCP - General 06/19/06 documented as of this encounter
--- OUTSIDE RECORDS SUMMARY | 2025-05-11 14:43 | XMS_ITS | Encounter Summary ---
Author Organization [facility] Address [address] [place] [address] Care Team Providers Care Agricultural Equipment Mechanic Name Role Phone Arturo Magallon MD Primary Care Provider Encounter Details Date Type Department Care Team (Latest Contact Info) Description 11/11/2000 Outpatient Historical HIS [facility] Sean Anderson MD [address] [place] [phone] Sprain of unspecified site of back (Primary Dx); Lumbago; General symptoms NEC Social History Tobacco Use Types Packs/Day Years Used Date Smoking Tobacco: Never Assessed Comments Unknown Sex and Gender Information Value Date Recorded Sex Assigned at Not on file Legal Sex Female 5:22 AM NEWS VIDEOTAPE EDITOR Gender Identity Not on file Sexual Orientation Not on file documented as of this encounter Plan of Treatment Not on file documented as of this encounter Visit Diagnoses Diagnosis Sprain of unspecified site of back- Primary Lumbago General symptoms NEC Other general symptoms documented in this encounter Care Teams Agricultural Equipment Mechanic Relationship Specialty Start Date End Date Arturo Magallon MD [address] [place] [address] PCP - General 06/19/06 documented as of this encounter
--- OUTSIDE RECORDS SUMMARY | 2025-05-11 14:43 | XMS_ITS | Encounter Summary ---
Author Organization [facility] Address [address] [place] [address] Care Team Providers Care Special Event Assistant Name Role Phone Arturo Magallon MD Primary Care Provider Encounter Details Date Type Department Care Team (Latest Contact Info) Description 09/29/2000 Outpatient Historical HIS [facility] Sean Anderson MD [address] [place] [address] Lumbago (Primary Dx); General symptoms NEC Social History Tobacco Use Types Packs/Day Years Used Date Smoking Tobacco: Never Assessed Comments Unknown Sex and Gender Information Value Date Recorded Sex Assigned at Not on file Legal Sex Female 5:22 AM IMAGE EDITOR Gender Identity Not on file Sexual Orientation Not on file documented as of this encounter Plan of Treatment Not on file documented as of this encounter Visit Diagnoses Diagnosis Lumbago- Primary General symptoms NEC Other general symptoms documented in this encounter Care Teams Special Event Assistant Relationship Specialty Start Date End Date Arturo Magallon MD [address] [place] [address] PCP - General 06/19/06 documented as of this encounter
--- OUTSIDE RECORDS SUMMARY | 2025-05-11 14:43 | XMS_ITS | Encounter Summary ---
Author Organization [facility] Address [address] [place] [address] Care Team Providers Care Utilization Reviewer Name Role Phone Arturo Magallon MD Primary Care Provider Encounter Details Date Type Department Care Team (Late st Contact Info) Description 07/28/2002 Outpatient Historical HIS [facility] Eunice, Gulshan Webster MD [address] [place] [phone] ABDOMINAL PAIN RUQ (Primary Dx); ABDOMINAL PAIN RLQ; PERS HX COLONIC POLYPS Social History Tobacco Use Types Packs/Day Years Used Date Smoking Tobacco: Never Assessed Comments Unknown Sex and Gender Information Value Date Recorded Sex Assigned at Not on file Legal Sex Female 5:22 AM HEAD SAMPLER Gender Identity Not on file Sexual Orientation Not on file documented as of this encounter Plan of Treatment Not on file documented as of this encounter Visit Diagnoses Diagnosis Abdominal pain, right upper quadrant- Primary Abdominal pain, right lower quadrant Personal history of colonic polyps documented in this encounter Care Teams Utilization Reviewer Relationship Specialty Start Date End Date Arturo Magallon MD [address] [place] [address] PCP - General 06/19/06 documented as of this encounter
--- OUTSIDE RECORDS SUMMARY | 2025-05-11 14:43 | XMS_ITS | Encounter Summary ---
Author Organization [facility] Address [address] [place] [address] Care Team Providers Care Carton Forming Machine Tender Name Role Phone Arturo Magallon MD Primary Care Provider Encounter Details Date Type Department Care Team (Latest Contact Info) Description 09/22/2000 Outpatient Historical HIS [facility] Sean Anderson MD [address] [place] [phone] Injury, other and unspecified, trunk (Primary Dx); Other unspecified back disorder; Other accident Social History Tobacco Use Types Packs/Day Years Used Date Smoking Tobacco: Never Assessed Comments Unknown Sex and Gender Information Value Date Recorded Sex Assigned at Not on file Legal Sex Female 5:22 AM LIFE SKILLS INSTRUCTOR Gender Identity Not on file Sexual Orientation Not on file documented as of this encounter Plan of Treatment Not on file documented as of this encounter Visit Diagnoses Diagnosis Injury, other and unspecified, trunk- Primary Other unspecified back disorder Other accident documented in this encounter Care Teams Carton Forming Machine Tender Relationship Specialty Start Date End Date Arturo Magallon MD [address] [place] [address] PCP - General 06/19/06 documented as of this encounter
--- OUTSIDE RECORDS SUMMARY | 2025-05-11 14:43 | XMS_ITS | Encounter Summary ---
Author Organization [facility] Address [address] [place] [address] Care Team Providers Care Casework Supervisor Name Role Phone Arturo Magallon MD Primary Care Provider Encounter Details Date Type Department Care Team (Late st Contact Info) Description 07/07/2006 Outpatient Historical HIS [facility] Social History Tobacco Use Types Packs/Day Years Used Date Smoking Tobacco: Never Assessed Comments Unknown Sex and Gender Information Value Date Recorded Sex Assigned at Not on file Legal Sex Female 5:22 AM THERAPIST RRT Gender Identity Not on file Sexual Orientation Not on file documented as of this encounter Plan of Treatment Not on file documented as of this encounter Visit Diagnoses Not on filedocumented in this encounter Care Teams Casework Supervisor Relationship Specialty Start Date End Date Arturo Magallon MD [address] [facility] [address] PCP - General 06/19/06 documented as of this encounter
--- OUTSIDE RECORDS SUMMARY | 2025-05-11 14:43 | XMS_ITS | Encounter Summary ---
Author Organization [facility] Address [address] [place] [address] Care Team Providers Care Care Transport Nurse Name Role Phone Arturo Magallon MD Primary Care Provider Encounter Details Date Type Department Care Team (Latest Contact Info) Description 11/16/2002 Outpatient Historical HIS [facility] Sean Anderson MD [address] [place] [phone] MIGRAINE NOS W/O MENTN INTRACTABLE (Primary Dx) Social History Tobacco Use Types Packs/Day Years Used Date Smoking Tobacco: Never Assessed Comments Unknown Sex and Gender Information Value Date Recorded Sex Assigned at Not on file Legal Sex Female 5:22 AM SLEEPING CAR CONDUCTOR Gender Identity Not on file Sexual Orientation Not on file documented as of this encounter Plan of Treatment Not on file documented as of this encounter Visit Diagnoses Diagnosis Migraine, unspecified, without mention of intractable migraine without mention of status migrainosus- Primary documented in this encounter Care Teams Care Transport Nurse Relationship Specialty Start Date End Date Arturo Magallon MD [address] [place] [address] PCP - General 06/19/06 documented as of this encounter
--- OUTSIDE RECORDS SUMMARY | 2025-05-11 14:43 | XMS_ITS | Encounter Summary ---
Author Organization [facility] Address [address] [place] [address] Care Team Providers Care Button Spindler Name Role Phone Arturo Magallon MD Primary Care Provider Encounter Details Date Type Department Care Team (Latest Contact Info) Description 06/19/2006 Outpatient Historical [facility] [address] [place] [phone] Arturo Magallon MD [address] [place] [address] Primary Localized Osteoarthrosis, Forearm (Primary Dx) Social History Tobacco Use Types Packs/Day Years Used Date Smoking Tobacco: Never Assessed Comments Unknown Sex and Gender Information Value Date Recorded Sex Assigned at Not on file Legal Sex Female 5:22 AM MODEL MAKER PLASTIC Gender Identity Not on file Sexual Orientation Not on file documented as of this encounter Plan of Treatment Not on file documented as of this encounter Visit Diagnoses Diagnosis Primary localized osteoarthrosis, forearm- Primary documented in this encounter Care Teams Button Spindler Relationship Specialty Start Date End Date Arturo Magallon MD [address] [place] [phone] PCP - General 06/19/06 documented as of this encounter
--- OUTSIDE RECORDS SUMMARY | 2025-05-11 14:43 | XMS_ITS | Encounter Summary ---
Author Organization [facility] Address [address] [place] [address] Care Team Providers Care Veneer Sawyer Name Role Phone Arturo Magallon MD Primary Care Provider Encounter Details Date Type Department Care Team (Latest Contact Info) Description 12/20/2002 Outpatient Historical [facility] Sean Anderson MD [address] [place] [id number] DISC DISPLACEMENT NOS (Primary Dx); LUMBAGO Social History Tobacco Use Types Packs/Day Years Used Date Smoking Tobacco: Never Assessed Comments Unknown Sex and Gender Information Value Date Recorded Sex Assigned at Not on file Legal Sex Female 5:22 AM DUAL RATE SUPERVISOR Gender Identity Not on file Sexual Orientation Not on file documented as of this encounter Plan of Treatment Not on file documented as of this encounter Visit Diagnoses Diagnosis Displacement of intervertebral disc, site unspecified, without myelopathy- Primary Lumbago documented in this encounter Care Teams Veneer Sawyer Relationship Specialty Start Date End Date Arturo Magallon MD [address] [place] [address] PCP - General 06/19/06 documented as of this encounter
--- OUTSIDE RECORDS SUMMARY | 2025-05-11 14:43 | XMS_ITS | Encounter Summary ---
Author Organization [facility] Address [address] [place] [address] Care Team Providers Care Resident Engineer Name Role Phone Arturo Magallon MD Primary Care Provider Encounter Details Date Type Department Care Team (Late st Contact Info) Description 03/20/2000 Outpatient Historical [facility] Social History Tobacco Use Types Packs/Day Years Used Date Smoking Tobacco: Never Assessed Comments Unknown Sex and Gender Information Value Date Recorded Sex Assigned at Not on file Legal Sex Female 5:22 AM LINING MECHANIC Gender Identity Not on file Sexual Orientation Not on file documented as of this encounter Plan of Treatment Not on file documented as of this encounter Visit Diagnoses Not on filedocumented in this encounter Care Teams Resident Engineer Relationship Specialty Start Date End Date Arturo Maagllon MD [address] [facility] [place] [address] PCP - General 06/19/06 documented as of this encounter
--- OUTSIDE RECORDS SUMMARY | 2025-05-11 14:43 | XMS_ITS | Encounter Summary ---
Author Organization [employer] [facility] Address [address] [place] [address] Care Team Providers Care Pharmacy Cashier Name Role Phone Arturo Magallon MD Primary Care Provider Encounter Details Date Type Department Care Team (Latest Contact Info) Description 01/15/2001 Outpatient Historical [facility] Sean Anderson MD [address] [place] [phone] Other chest pain (Primary Dx); Other and unspecified hyperlipidemia Social History Tobacco Use Types Packs/Day Years Used Date Smoking Tobacco: Never Assessed Comments Unknown Sex and Gender Information Value Date Recorded Sex Assigned at Not on file Legal Sex Female 5:22 AM CLOUD SOLUTIONS ARCHITECT Gender Identity Not on file Sexual Orientation Not on file documented as of this encounter Plan of Treatment Not on file documented as of this encounter Visit Diagnoses Diagnosis Other chest pain- Primary Other and unspecified hyperlipidemia documented in this encounter Care Teams Pharmacy Cashier Relationship Specialty Start Date End Date Arturo Magallon MD [address] [place] [phone] PCP - General 06/19/06 documented as of this encounter
--- OUTSIDE RECORDS SUMMARY | 2025-05-11 14:43 | XMS_ITS | Encounter Summary ---
Author Organization [facility] Address [address] [place] [address] Care Team Providers Care Community Organization Worker Name Role Phone Arturo Magallon MD Primary Care Provider Encounter Details Date Type Department Care Team (Latest Contact Info) Description 12/24/2001 Outpatient Historical [facility] Sean Anderson MD [address] [place] [phone] DISC DISPLACEMENT NOS (Primary Dx); General symptoms NEC Social History Tobacco Use Types Packs/Day Years Used Date Smoking Tobacco: Never Assessed Comments Unknown Sex and Gender Information Value Date Recorded Sex Assigned at Not on file Legal Sex Female 5:22 AM OB SCRUB TECH Gender Identity Not on file Sexual Orientation Not on file documented as of this encounter Plan of Treatment Not on file documented as of this encounter Visit Diagnoses Diagnosis Displacement of intervertebral disc, site unspecified, without myelopathy- Primary General symptoms NEC Other general symptoms documented in this encounter Care Teams Community Organization Worker Relationship Specialty Start Date End Date Arturo Magallon MD [address] [place] [phone] PCP - General 06/19/06 documented as of this encounter
--- OUTSIDE RECORDS SUMMARY | 2025-05-11 14:43 | XMS_ITS | Encounter Summary ---
Author Organization [facility] Address [address] [place] [address] Care Team Providers Care Barrel Raiser Name Role Phone Arturo Magallon MD Primary Care Provider Encounter Details Date Type Department Care Team (Latest Contact Info) Description 07/07/2006 Outpatient Historical [facility] 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
[2025-05-11 15:01] VITALS: BP 125/75; PULSE 71; TEMP 36.8; O2SAT 95
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
[2025-05-11 15:14] VITALS: BP 125/75; PULSE 71; O2SAT 95
== END 2025-05-11 15:15 | disposition home or self-care (01) ==
PROVIDERS: Emergency Provider Emergency Medicine; PCP Internal Medicine
DX: S16.1XXA Strain of muscle, fascia and tendon at neck level, initial encounter (principal); V89.2XXA Person injured in unspecified motor-vehicle accident, traffic, initial encounter; Z79.82 Long term (current) use of aspirin; E78.5 Hyperlipidemia, unspecified; E78.2 Mixed hyperlipidemia; I25.119 Atherosclerotic heart disease of native coronary artery with unspecified angina pectoris
CPT/HCPCS: 73030; 99283